=== PATIENT | male | born 2000 | race Caucasian/White ===

== ENCOUNTER 2022-04-08 07:41 | Outpatient (CLI) | payer BC | END 2022-04-08 07:42 | disposition home or self-care (01) | LOC: SCSMRI 07:41 | DX: M54.16 Radiculopathy, lumbar region (principal); M51.27 Other intervertebral disc displacement, lumbosacral region | CPT/HCPCS: 72148 ==

== ENCOUNTER 2022-09-22 07:22 | Day surgery (SDC) | payer BC ==
[2022-09-17 14:41] VITALS: BMI 25.1
[2022-09-22] MEDS ORDERED: Midazolam HCl 2 mg/2 ml Vial ONE ×2 (08:20→09:15)
[2022-09-22] MEDS ORDERED: Bupivacaine HCl 0.5%/Epinephrine 1:200,000/PF 30 ml Vial ONE (08:46)
[2022-09-22] MEDS ORDERED: Fentanyl 250 MCG/5 ML VIAL ONE (09:00)
[2022-09-22] MEDS ORDERED: Sodium Chloride 0.9% 100 ML ONE ×2 (09:04→13:05)
[2022-09-22] MEDS ORDERED: CEFAZOLIN 2 GM VIAL ONE ×2 (09:04→13:05)
[2022-09-22] MEDS ORDERED: NEOSTIGMINE 3 MG/3 ML SYR 3 MG/3 ML SYRINGE ONE (09:16)
[2022-09-22] MEDS ORDERED: Lidocaine 1% PF 5 ML VIAL ONE (09:16)
[2022-09-22] MEDS ORDERED: Ondansetron PF 4 MG/2 ML Vial ONE (09:16)
[2022-09-22] MEDS ORDERED: PROPOFOL 200 MG/20 ML VIAL ONE (09:16)
[2022-09-22] MEDS ORDERED: Ketorolac Tromethamine 30 MG/ML VIAL ONE (09:16)
[2022-09-22] MEDS ORDERED: Dexamethasone 20 MG/5 ML VIAL ONE (09:16)
[2022-09-22] MEDS ORDERED: Glycopyrrolate 0.2 MG/ML 5 ML SYRINGE ONE (09:16)
[2022-09-22] MEDS ORDERED: Rocuronium Bromide 10 MG/ML (10ML VIAL) ONE (09:16)
[2022-09-22] MEDS ORDERED: fentaNYL 50 mcg/mL 1 mL Vial ONE (11:05)
[2022-09-22] MEDS ORDERED: Tamsulosin HCl 0.4 MG CAP ONE (11:26)
[2022-09-22] MEDS ORDERED: HYDROcodone/Acetaminophen 5/325 mg Tablet ONE (13:11)
== END 2022-09-22 13:50 | disposition home or self-care (01) ==
LOC: SDC 07:22
PROVIDERS: ATTEND Neurological Surgery
PROC: 01NB0ZZ Release Lumbar Nerve, Open Approach (ICD-10-PCS; principal; 2022-09-22)
PROC: 0SB40ZZ Excision of Lumbosacral Disc, Open Approach (ICD-10-PCS; principal; 2022-09-22)
DX: M51.16 Intervertebral disc disorders with radiculopathy, lumbar region (principal); Z90.89 Acquired absence of other organs; Z88.0 Allergy status to penicillin; Z88.1 Allergy status to other antibiotic agents
CPT/HCPCS: J1100; J1885; J2250; J2405; J2704; J3010; J3490